=== PATIENT | female | born 1990 | race African-American/Black ===

== ENCOUNTER 2021-05-29 19:29 | Emergency (ER) | payer SELFPAY | END 2021-05-29 22:18 | disposition home or self-care (01) | LOC: CSHERS 19:29 | DX: S93.402A Sprain of unspecified ligament of left ankle, initial encounter (principal); X50.1XXA Overexertion from prolonged static or awkward postures, initial encounter; Y93.01 Activity, walking, marching and hiking ==

== ENCOUNTER 2023-08-22 19:58 | Emergency (ER) | payer MEDICAID, SELFPAY ==
[2023-08-22] MEDS ORDERED: Ondansetron ODT 4 MG TAB ONE (20:30)
[2023-08-22] MEDS ORDERED: Ibuprofen 200 MG TAB ONE (20:30)
[2023-08-22 20:49] LABS: SARS-CoV-2 NAA Rapid Test Not Detected (NotDetected)
== END 2023-08-22 20:55 | disposition home or self-care (01) ==
LOC: CSHERS 19:58
DX: J10.1 Influenza due to other identified influenza virus with other respiratory manifestations (principal)
CPT/HCPCS: 99283; Q0162